=== PATIENT | male | born 1955 | race Caucasian/White ===

== ENCOUNTER 2024-08-23 00:52 | Emergency (ER) | payer MEDICARE, OTHER, MEDICAID ==
[~2024-08-23] VITALS: Ht 172.7 cm; Wt 90.0 kg
[~2024-08-23 00:52] MED LIST: IBUP-2028 PO
[2024-08-23 00:57] VITALS: BP 189/84; PULSE 71; RESP 16; TEMP 98.4; O2SAT 99
[2024-08-23 01:55] LABS: BASOPHILS % 0.7 % (0.0-2.0); DIFFERENTIAL COMMENT 0; EOSINOPHILS % 3.1 % (0.0-5.0); HEMATOCRIT. 45.5 % (42.0-52.0); HEMOGLOBIN. 15.5 g/dL (14.0-18.0); LYMPHOCYTES % 22.4 % (20.0-50.0); MEAN CORPUSCULAR HEMOGLOBIN 32.6 pg (28.0-32.0); MEAN CORPUSCULAR HGB CONC 33.9 g/dL (31.0-37.0); MEAN CORPUSCULAR VOLUME 95.9 fL (80.0-94.0); MEAN PLATELET VOLUME 10.7 fl (7.4-10.4); MONOCYTES % 9.1 % (2.0-8.0); NEUTROPHILS % 64.7 % (40.0-76.0); PLATELET 171 x1000/uL (130-400); RED BLOOD CELL COUNT 4.75 mill/uL (4.7-6.1); RED CELL DISTRIBUTION WIDTH 12.9 % (11.6-14.6)
[2024-08-23 02:09] LABS: CHLORIDE 104 mEq/L (98-107); POTASSIUM 3.6 mEq/L (3.5-5.1); SODIUM 139 mEq/L (136-145)
[2024-08-23 02:10] LABS: CARBON DIOXIDE 27 mEq/L (21-32)
[2024-08-23 02:15] LABS: CREATININE 0.9 mg/dL (0.6-1.3); GLUCOSE 157 mg/dL (70-105); UREA NITROGEN BLOOD 14 mg/dL (9-23)
[2024-08-23 02:16] LABS: TROPONIN I HIGH SENSITIVITY 28 ng/L (3.0-53)
[2024-08-23 03:51] LABS: TROPONIN I HIGH SENSITIVITY 28 ng/L (3.0-53)
== END 2024-08-23 01:13 | disposition left against medical advice (07) ==
LOC: ER 00:52 → CANBEDREQ 03:38
DX: R07.9 Chest pain, unspecified (principal); E11.9 Type 2 diabetes mellitus without complications; I10 Essential (primary) hypertension; I25.2 Old myocardial infarction
CPT/HCPCS: 36415; 71045; 80048; 83880; 84484; 85025; 93005; 99285